=== PATIENT | female | born 1950 | race Caucasian/White ===

== ENCOUNTER 2017-02-16 06:19 | Day surgery (SDC) | payer OTHER ==
[2017-02-11 16:43] LABS: BASOPHILS 0.6 %; BASOPHILS ABSOLUTE 0.02 10/3/uL (0.0-0.16); EOSINOPHILS 2.4 %; EOSINOPHILS ABSOLUTE 0.08 10/3/uL (0.0-0.53); HEMOGLOBIN 11.1 g/dL (12.0-16.0); IMMATURE GRANULOCYTES 0.6 %; IMMATURE GRANULOCYTES ABSOLUTE 0.02 10/3/uL (0.0-0.11); LYMPHOCYTES 29.6 %; MEAN CORPUS HGB CONC 32.8 g/dL (32.0-36.0); MEAN CORPUSCULAR HEMOGLOB 30.2 pg (26.0-34.0); MEAN PLATELET VOLUME 10.1 fL (9.2-13.0); MONOCYTES ABSOLUTE 0.44 10/3/uL (0.21-1.20); NEUTROPHILS 53.8 %; NEUTROPHILS ABSOLUTE 1.82 10/3/uL (2.02-8.40); RBC DISTRIBUTION WIDTH 16.6 % (12.0-16.0); RED CELL COUNT 3.67 10/6/uL (4.0-5.6); WHITE BLOOD CELLS 3.4 10/3/uL (4.5-10.5)
[2017-02-11 16:47] LABS: HEMATOCRIT 33.8 % (36.0-48.0); MANUAL DIFF NO %; MEAN CORPUSCULAR VOLUME 92.1 fL (80-100); PLATELET COUNT 218 10/3/uL (150-400)
[2017-02-11 16:49] LABS: A/G RATIO 1.3 (0.7-1.9); ALBUMIN 3.5 G/DL (3.5-5.0); CHLORIDE, SERUM 106 MMOL/L (96-112); CO2 (CARBON DIOXIDE) 29 MMOL/L (24-34); CREATININE 0.84 MG/DL (0.55-1.02); GFR AFRICAN AMERICAN 83 ML/MIN (>=60); GFR NON AFRICAN AMERICAN 71 ML/MIN (>=60); GLOBULIN 2.7 G/DL (2.5-4.1); POTASSIUM, SERUM 4.1 MMOL/L (3.5-5.3); SGOT(AST) 23 U/L (5-40); SGPT(ALT) 24 U/L (5-65); SODIUM, SERUM 145 MMOL/L (135-148); TOTAL BILIRUBIN 0.5 MG/DL (0-1.2); TOTAL PROTEIN 6.2 G/DL (6.0-8.5)
[2017-02-11 16:50] LABS: ALKALINE PHOSPHATASE 87 U/L (45-117); BUN (BLOOD UREA NITROGEN) 7 MG/DL (6-23); GLUCOSE, SERUM 116 MG/DL (60-99)
--- NOTE | ~2017-02-16 | OP ---
Record Of Operation [facility] [address] [place]. [address] NAME: NAKITA SARMIENTO : 48 STATUS : REG [facility]#: [id number] AGE: 67 ADM/REG DATE : 02/16/17 MR#: [id number] REPORT SERV DATE: 02/16/17 DICTATED BY: SHELBIE SANTOYO JR. DATE: 02/16/17 REPORT STATUS : Draft TRANSCRIBED BY: MODL DATE: 02/16/17 DATE OF PROCEDURE: REASON FOR SURGERY: This 67-year-old patient, completed neoadjuvant chemotherapy for a moderately large tumor in the right breast with a good, but not complete clinical response. She has been clinically node negative. She now is scheduled for breast preservation surgery. Preoperative ultrasound localization was performed in the [facility]. PREOPERATIVE DIAGNOSIS: Carcinoma, right breast. POSTOPERATIVE DIAGNOSIS: Carcinoma, right breast. SURGEON: Shelbie Santoyo M.D. SURGERY PERFORMED: [place] node localization, followed by right breast segmentectomy, and sentinel node removal, and venous port removal. PROCEDURE IN DETAIL: The patient was initially injected in the nuclear medicine facility. She was taken to the operating room and under general anesthesia, she was prepped and draped in supine position in usual sterile fashion. A curvilinear incision was made directly over the palpable indurated residual mass. An elongated area was resected measuring 5 x 4 x 4 cm keeping the indurated oblong biopsy tract and tumor center most within the specimen. It was obvious that the posterior margin was clear, but somewhat close at the 4 to 6 o'clock position. This was confirmed on pathology. An additional disk was then taken measuring 4 x 4 x 1.5 cm encompassing the entire inferior hemisphere of the deep margin of the surgical cavity. The wound was irrigated and hemostasis was obtained. The wound was closed with two layers of Monocryl. Attention was turned to the right axilla. With the gamma probe direction, a small curvilinear incision was made and vertical dissection was carried down to singly active hot spot. A rather generous fleshy node was encountered that was highly suspicious measuring about 8 mm. It was very active with background count basically silent. The numbers are recorded in the surgical log book. The node was removed and frozen section was negative. The wound was irrigated and hemostasis was obtained. The wound was closed with two layers of Monocryl. Then attention was then turned to the left infraclavicular region. The old venous port site was incised and the port was removed in toto. The wound was irrigated and hemostasis was obtained. The wound was closed with two layers of Monocryl. The patient tolerated the procedure well without complications. ESTIMATED BLOOD LOSS: Less than 15 mL. SPONGE COUNT: Correct. Record Of Operation [address] [address] NAME: NAKITA SARMIENTO : 48 STATUS : REG [facility] PAT#: [id number] AGE: 67 ADM/REG DATE : 02/16/17 MR#: [id number] REPORT SERV DATE: 02/16/17 DICTATED BY: SHELBIE SANTOYO JR. DATE: 02/16/17 REPORT STATUS : Draft TRANSCRIBED BY: JOHNNY DATE: 02/16/17 /JOHNNY Shelbie Santoyo Jr., M.D. / [id number] CC: Mami Man Jr., KATRINA [facility] Mami Qiu III, MD
[~2017-02-16 06:19] MED LIST: FLEX PO; KLONO1 PO; KLONO2 PO; MTX2.5 PO; PRIN10 PO; ULTRAM50 PO
== END 2017-02-16 12:52 | disposition home or self-care (01) ==
LOC: NM 06:19
PROVIDERS: Surgery Surgical Oncology
PROC: BH40ZZZ Ultrasonography of Right Breast (ICD-10-PCS; 2017-02-16)
PROC: 0JPT0XZ Removal of Tunneled Vascular Access Device from Trunk Subcutaneous Tissue and Fascia, Open Approach (ICD-10-PCS; 2017-02-16)
PROC: 0HBT0ZX Excision of Right Breast, Open Approach, Diagnostic (ICD-10-PCS; principal; 2017-02-16 07:45)
PROC: 07B50ZX Excision of Right Axillary Lymphatic, Open Approach, Diagnostic (ICD-10-PCS; 2017-02-16 07:45)
DX: C50.411 Malignant neoplasm of upper-outer quadrant of right female breast (principal); I10 Essential (primary) hypertension; M06.9 Rheumatoid arthritis, unspecified; Z90.49 Acquired absence of other specified parts of digestive tract; Z88.8 Allergy status to other drugs, medicaments and biological substances; Z79.899 Other long term (current) drug therapy; Z90.711 Acquired absence of uterus with remaining cervical stump; Z98.890 Other specified postprocedural states
CPT/HCPCS: 36415; 71020; 78195; 80053; 85025; 88305; 88307; 88331; 88342; 88360; 93005; A9541; J0690; J2405; J3010